=== PATIENT | male | born 2000 | race American Indian/Alaskan Native ===

== ENCOUNTER 2021-04-27 12:29 | Emergency (ER) | payer OTHER ==
--- NOTE | 2021-04-27 14:28 | CT ---
Head CT Technique: Multiple axial sections of the brain were obtained. Intravenous contrast was not utilized. Comparison: No prior intracranial imaging is available. Findings: Ventricles along with basal cisterns and sulci over the convexities are within normal limits for the patient's age. No abnormal parenchymal densities are seen. No evidence of intracranial hemorrhage. No midline shift or mass-effect is seen. Bone window settings were reviewed which show no acute paranasal sinus finding. No acute mastoid sinus finding is seen. No acute calvarial abnormality is seen. Impression: 1. Nothing acute is appreciated on noncontrast head CT study. Diagnostic code #1
--- NOTE | 2021-04-27 14:50 | EDM.PDOC ---
ED HPI GENERAL MEDICAL PROBLEM - General Chief Complaint: Neurological Problem Stated Complaint: CHEST PAIN/SOB/NOSEBLEEDS ALL ONGOING Time Seen by Provider: 04/27/21 12:47 Source of Information: Reports: Patient History Limitations: Reports: No Limitations - History of Present Illness INITIAL COMMENTS - FREE TEXT/NARRATIVE: The patient presents with nosebleeds. He says for the past month he has been having nosebleeds. He says they last for about 15 minutes and he has had a a few this past week. He also fell yesterday when getting up in his dorm room. He say he has a headache. He also has some congestion and sore throat. He does not have a fever or chills. He has no cough. He has no chest pain or shortness of breath. He has no abdominal pain, nausea or vomiting. He was looking on his phone and he thinks he has leukemia. He did have some episodes of easily bruising a few weeks ago but that is better. Onset: Gradual Duration: Day(s): Location: Reports: Head Quality: Reports: Ache Severity: Moderate Improves with: Reports: None Worsens with: Reports: None Associated Symptoms: Reports: Headaches. Denies: Chest Pain, Cough, Fever/Chills, Nausea/Vomiting, Shortness of Breath Right Posterior Head Pain Score (Numeric/FACES): 5 Chest Pain Score (Numeric/FACES): 3 - Related Data Allergies Allergy/AdvReac Type Severity Reaction Status Date / Time No Known Allergies Allergy Verified 04/27/21 13:05 Home Meds: Home Meds . [No Known Home Meds] 04/27/21 [History] ED ROS GENERAL - Review of Systems Review Of Systems: See Below Constitutional: Reports: No Symptoms HEENT: Reports: Nosebleed Respiratory: Reports: No Symptoms Cardiovascular: Reports: Syncope. Denies: Chest Pain Endocrine: Reports: No Symptoms GI/Abdominal: Reports: No Symptoms : Reports: No Symptoms Musculoskeletal: Reports: No Symptoms Skin: Reports: No Symptoms ED EXAM, NEURO - Physical Exam Exam: See Below Exam Limited By: No Limitations General Appearance: Alert, No Apparent Distress Ears: Normal External Exam Nose: Other (Dried blood to the left nare) Throat/Mouth: Normal Inspection Head Exam: Atraumatic, Normocephalic Neck: Normal Inspection, Supple, Non-Tender Respiratory/Chest: No Respiratory Distress, Lungs Clear, Normal Breath Sounds Cardiovascular: Regular Rate, Rhythm, No Edema, No Murmur GI/Abdominal: Soft, Non-Tender, No Organomegaly, No Mass Neurological: Alert, No Motor/Sensory Deficits, Oriented x 3 #1 Interpretation EKG Date: 04/27/21 Time: 13:20 Rhythm: Other (sinus bradycardia) Rate (Beats/Min): 41 [place]: Normal P-Wave: Present QRS: Normal ST-T: Elevated (Normal early repol) QT: Normal Course - Vital Signs Last Recorded V/S: Last Vital Signs Temp 97.8 F 04/27/21 12:55 Pulse 45 L 04/27/21 12:55 Resp 20 04/27/21 12:55 BP 153/85 H 04/27/21 12:55 Pulse Ox 98 04/27/21 12:55 - Orders/Labs/Meds Orders: Active Orders 24 hr Category Date Time Status Cardiac Monitoring [RC] . DIRECTED Care 04/27/21 13:13 Active Labs: Laboratory Tests 04/27/21 04/27/21 04/27/21 Range/Units 13:19 13:28 13:28 WBC 6.02 (4.23-9.07) K/mm3 RBC 5.50 (4.63-6.08) M/mm3 Hgb 16.0 (13.7-17.5) gm/dl Hct 47.5 (40.1-51.0) % MCV 86.4 (79.0-92.2) fl MCH 29.1 (25.7-32.2) pg MCHC 33.7 (32.2-35.5) g/dl RDW Std Deviation 43.6 (35.1-43.9) fL Plt Count 273 (163-337) K/mm3 MPV 10.0 (9.4-12.3) fl Neut % (Auto) 58.3 (34.0-67.9) % Lymph % (Auto) 31.1 (21.8-53.1) % [place] % (Auto) 8.6 (5.3-12.2) % Eos % (Auto) 1.5 (0.8-7.0) Baso % (Auto) 0.3 (0.1-1.2) % Neut # (Auto) 3.51 (1.78-5.38) K/mm3 Lymph # (Auto) 1.87 (1.32-3.57) K/mm3 [place] # (Auto) 0.52 (0.30-0.82) K/mm3 Eos # (Auto) 0.09 (0.04-0.54) K/mm3 Baso # (Auto) 0.02 (0.01-0.08) K/mm3 PT 10.6 (9.7-12.0) SECONDS INR 0.95 APTT 27.3 (21.7-31.4) SECONDS Sodium (136-145) mEq/L Potassium (3.5-5.1) mEq/L Chloride (98-107) mEq/L Carbon Dioxide (21-32) mEq/L Anion Gap (5-15) BUN (7-18) mg/dL Creatinine (0.7-1.3) mg/dL Est Cr Clr Drug Dosing mL/min Estimated GFR (MDRD) (>60) mL/min BUN/Creatinine Ratio (14-18) Glucose (70-99) mg/dL Calcium (8.5-10.1) mg/dL Total Bilirubin (0.2-1.0) mg/dL AST (15-37) U/L ALT (16-63) U/L Alkaline Phosphatase (46-116) U/L Troponin I (0.00-0.056) ng/mL Total Protein (6.4-8.2) g/dl Albumin (3.4-5.0) g/dl Globulin gm/dL Albumin/Globulin Ratio (1-2) SARS-CoV-2 RNA (FABIANO) Negative (NEGATIVE) 04/27/21 Range/Units 13:28 WBC (4.23-9.07) K/mm3 RBC (4.63-6.08) M/mm3 Hgb (13.7-17.5) gm/dl Hct (40.1-51.0) % MCV (79.0-92.2) fl MCH (25.7-32.2) pg MCHC (32.2-35.5) g/dl RDW Std Deviation (35.1-43.9) fL Plt Count (163-337) K/mm3 MPV (9.4-12.3) fl Neut % (Auto) (34.0-67.9) % Lymph % (Auto) (21.8-53.1) % [place] % (Auto) (5.3-12.2) % Eos % (Auto) (0.8-7.0) Baso % (Auto) (0.1-1.2) % Neut # (Auto) (1.78-5.38) K/mm3 Lymph # (Auto) (1.32-3.57) K/mm3 [place] # (Auto) (0.30-0.82) K/mm3 Eos # (Auto) (0.04-0.54) K/mm3 Baso # (Auto) (0.01-0.08) K/mm3 PT (9.7-12.0) SECONDS INR APTT (21.7-31.4) SECONDS Sodium 141 (136-145) mEq/L Potassium 4.0 (3.5-5.1) mEq/L Chloride 107 (98-107) mEq/L Carbon Dioxide 22 (21-32) mEq/L Anion Gap 16.0 H (5-15) BUN 13 (7-18) mg/dL Creatinine 1.0 (0.7-1.3) mg/dL Est Cr Clr Drug Dosing 130.41 mL/min Estimated GFR (MDRD) > 60 (>60) mL/min BUN/Creatinine Ratio 13.0 L (14-18) Glucose 108 H (70-99) mg/dL Calcium 8.6 (8.5-10.1) mg/dL Total Bilirubin 0.4 (0.2-1.0) mg/dL AST 21 (15-37) U/L ALT 33 (16-63) U/L Alkaline Phosphatase 77 (46-116) U/L Troponin I < 0.017 (0.00-0.056) ng/mL Total Protein 7.2 (6.4-8.2) g/dl Albumin 3.6 (3.4-5.0) g/dl Globulin 3.6 gm/dL Albumin/Globulin Ratio 1.0 (1-2) SARS-CoV-2 RNA (FABIANO) (NEGATIVE) - Re-Assessments/Exams Free Text/Narrative Re-Assessment/Exam: 04/27/21 14:51 I ordered an EKG, CT of his head and labs. His EKG shows a sinus bradycardia with no acute changes. His CT looks good. His CBC and CMP look good. He is COVID negative. 04/27/21 14:52 His troponin is negative. 04/27/21 15:03 I looked in both nostrils and there was some minor bleeding at the anterior right septum. I used some silver nitrate to cauterize it. I feel he has a viral URI. I will have him put air or antibiotic ointment in each nostril. Departure - Departure Time of Disposition: 15:05 Disposition: Home, Self-Care 01 Condition: Good Clinical Impression: Epistaxis, Viral URI Syncope Qualifiers: Syncope type: unspecified Qualified Code(s): R55 - Syncope and collapse - Discharge Information *PRESCRIPTION DRUG MONITORING PROGRAM REVIEWED*: Not Applicable *COPY OF PRESCRIPTION DRUG MONITORING REPORT IN PATIENT ERIC: Not Applicable Referrals: PCP,None [Primary Care Provider] - Roger Fuller MD [Physician] - 1 Week Forms: ED Department Discharge Additional Instructions: Drink plenty of fluids. Take tylenol or motrin for fever or pain. Put antibiotic or [place] in each nostril to keep things moist. Follow up with Dr Fuller within a week. Please return if you are worse. Sepsis Event Note (ED) - Focused Exam Vital Signs: Vital Signs Temp Pulse Resp BP Pulse Ox 04/27/21 12:55 97.8 F 45 L 20 153/85 H 98 - My Orders Last 24 Hours: My Active Orders 04/27/21 13:13 Cardiac Monitoring [RC] . DIRECTED - Assessment/Plan Last 24 Hours: My Active Orders 04/27/21 13:13 Cardiac Monitoring [RC] . DIRECTED ED EPISTAXIS PROCEDURES - Epistaxis Procedure Indication: Epistaxis Recent anticoagulants/antiplatlets: No Uncontrolled HTN: No Recent septal/nasal surgery: No Site of bleeding: Right Nare Ice pack to area: No Chemical cautery: Silver Nitrate Topical
== END 2021-04-27 15:35 | disposition home or self-care (01) ==
LOC: JD.ED 12:29
DX: R04.0 Epistaxis (principal); J06.9 Acute upper respiratory infection, unspecified; R55 Syncope and collapse; Z20.822 Contact with and (suspected) exposure to COVID-19
CPT/HCPCS: 30903; 36415; 70450; 70450-26; 80053; 84484; 85025; 85610; 85730; 93005; 99284-25; U0002

== ENCOUNTER 2021-05-04 22:18 | Emergency (ER) | payer SELFPAY ==
--- NOTE | 2021-05-05 00:16 | EDM.PDOC ---
ED HPI GENERAL MEDICAL PROBLEM - General Chief Complaint: General Stated Complaint: NOSE BLEEDS/DIZZINESS/MIGRAINE Time Seen by Provider: 05/04/21 23:46 Source of Information: Reports: Patient, Old Records (ED visit 04/27/2021) History Limitations: Reports: No Limitations - History of Present Illness INITIAL COMMENTS - FREE TEXT/NARRATIVE: Mr. Allison is a very pleasant 20-year-old gentleman who, medical records indicate, was seen in this ED 1 week ago, on 04/27/2021, with a complaint at that time of recurrent nosebleeds for 1 month. He stated that he had had several the prior week, each lasting about 15 minutes. He also reported that he had fallen when getting up in his dorm room, and that he had a headache. He reporting having some congestion and a sore throat. No fever, chills, cough, chest pain, dyspnea, abdominal pain, nausea, or vomiting. He was found to be hemodynamically stable, afebrile, saturating 98% on room air. His physical exam was notable for some dried blood in his left nare, otherwise, was unremarkable. Work-up included a CBC, CMP, troponin, coags, a swab for the SARS-CoV-2 virus and ECG, and CT of the head without contrast. His entire work-up was unremarkable. Before he was discharged, the patient developed a small amount of epistaxis on the right. A visible vessel was cauterized with silver nitrate. He was discharged with the advice of applying an antibiotic ointment to each side of his nostril, and to follow-up with Dr. Fuller in the clinic. The patient now returns to the ED stating that he has been experiencing 2 weeks of dyspnea, chest pain, insomnia, lightheadedness, headache, and blurry vision, in addition to continued recurrent epistaxis, up to 6 times per day. He acknowledges that he did not apply any ointment to his nostrils, and he did not make an appointment to follow-up with Dr. Fuller. He states that he took 24 mg (8 tablets x 3 mg each) of melatonin yesterday, because he thought that a l arger dose would help him fall asleep. He states that he did in fact sleep. Here in the ED tonight, the patient is found to be hemodynamically stable, afebrile, saturating 99% on room air. He appears to be comfortable, in no acute distress. Other than epistaxis, prior to 2 weeks ago, the patient denies having a recent fever, chills, sore throat, ear pain, nasal or sinus congestion, cough, dyspnea, chest pain, palpitations, nausea, vomiting, constipation, diarrhea, abdominal pain, urinary symptoms, recent weight gain or weight loss, recent bloody bowel movements or black bowel movements, recent joint aches, headaches, or rashes. The patient does not have a PCP. He has received 1 Pfizer Muecs vaccination. Chest Pain Score (Numeric/FACES): 8 Headache Pain Score (Numeric/FACES): 8 - Related Data Allergies Allergy/AdvReac Type Severity Reaction Status Date / Time No Known Allergies Allergy Verified 04/27/21 13:05 Home Meds: Home Meds Melatonin 3 mg PO BEDTIME PRN 05/04/21 [History] Past Medical History Endocrine/Metabolic History: Reports: Obesity/BMI 30+ - Past Surgical History Musculoskeletal Surgical History: Reports: Other (See Below) (Right thumb tendon repair) Social & Family History - Tobacco Use Tobacco Use Status *Q: Never Tobacco User Tobacco Use Within Last Twelve Months: Vaping (Nicotine) - Caffeine Use Caffeine Use: Reports: Soda - Alcohol Use Alcohol Use History: Yes Alcohol Use Frequency: Socially - Recreational Drug Use Recreational Drug Use: No - Living Situation & Occupation Living situation: Reports: Single, Other (Dorm) Occupation: Student ([employer]) ED ROS GENERAL - Review of Systems Review Of Systems: Comprehensive ROS is negative, except as noted in HPI. ED EXAM, GENERAL - Physical Exam Exam: See Below Exam Limited By: No Limitations General Appearance: Alert, WD/WN, No Apparent Distress Eye Exam: Bilateral Eye: EOMI, Normal Inspection Ears: Normal External Exam, Normal Canal, Hearing Grossly Normal, Normal TMs Nose: Normal Mucosa, No Blood, Other (Small scab to lower anterior right nasal septum. No bleeding or dried blood seen.) Throat/Mouth: Normal Inspection, Normal Lips, Normal Teeth, Normal Gums, Normal Oropharynx, Normal Voice, No Airway Compromise Head: Atraumatic, Normocephalic Neck: Normal Inspection, Supple, Non-Tender, Full Range of Motion. No: Lymphadenopathy (L), Lymphadenopathy (R) Respiratory/Chest: No Respiratory Distress, Lungs Clear, Normal Breath Sounds, No Accessory Muscle Use. No: Decreased Breath Sounds, Crackles, Rhonchi, Wheezing, Stridor, Prolonged Expiration Cardiovascular: Normal Peripheral Pulses, Regular Rate, Rhythm, No Edema, No Gallop, No JVD, No Murmur, No Rub Peripheral Pulses: 3+: Radial (L), Radial (R) GI/Abdominal: Normal Bowel Sounds, Soft, Non-Tender, No Organomegaly, No Distention, No Abnormal Bruit, No Mass Back Exam: Normal Inspection, Full Range of Motion, NT Extremities: Normal Inspection, Normal Range of Motion, No Pedal Edema, Normal Capillary Refill Neurological: Alert, Oriented, Normal Cognition, No Motor/Sensory Deficits Psychiatric: Normal Affect Skin Exam: Warm, Dry, Intact, Normal Color, No Rash Course - Vital Signs Last Recorded V/S: Last Vital Signs Temp 37.5 C 05/04/21 22:44 Pulse 63 05/04/21 22:44 Resp 20 05/04/21 22:44 BP 140/84 05/04/21 22:44 Pulse Ox 99 05/04/21 22:44 Orthostatic Blood Pressure [ 128/82 Standing] Orthostatic Blood Pressure [ 130/68 Supine] - Re-Assessments/Exams Free Text/Narrative Re-Assessment/Exam: 05/05/21 00:11 According to the patient, he has been experiencing epistaxis for more than 1 month, and dyspnea, chest pain, insomnia, lightheadedness, a headache, and blurry vision for 2 weeks. An exhaustive work-up was performed in this ED 1 week ago, on 04/27/2021, and was entirely unremarkable. Since his symptoms began a week before the exhaustive work-up, and his symptoms are unchanged, I see no indication to repeat them again tonight. The only test that I can conceive of that was not done a week ago is checking orthostatics. 05/05/21 01:35 The patient is not orthostatic. 05/05/21 01:55 I will discharge the patient home with recommendation that he call the clinic in the morning to establish a PCP. Departure - Departure Time of Disposition: 01:55 Disposition: Home, Self-Care 01 Condition: Good Clinical Impression: Recurrent epistaxis, Dyspnea, Chest pain, Insomnia, Lightheadedness, Headache, Blurry vision - Discharge Information *PRESCRIPTION DRUG MONITORING PROGRAM REVIEWED*: Not Applicable *COPY OF PRESCRIPTION DRUG MONITORING REPORT IN PATIENT ERIC: Not Applicable Instructions: Nosebleed, Adult, [id number] Referrals: PCP,None [Primary Care Provider] - Roger Fuller MD [Physician] - Forms: ED Department Discharge Additional Instructions: You were seen in the emergency room for more than 1 month of recurrent right- sided nosebleed, along with 2 weeks of shortness of breath, chest pain, insomnia, lightheadedness, headache, and blurry vision. Work-up in the ER included positional blood pressure checks, which returned normal. Since your symptoms began 1 week prior to an extensive work-up in the ER 1 week ago, repeating those tests were not indicated. As discussed, there is no benefit in taking large doses of melatonin. Stay adequately hydrated and eat a balanced diet. If you redevelop a nosebleed, sit upright, tilt your head slightly forward, and pinch your nose tightly, for about 10 to 15 minutes. This stops at nearly all nosebleeds. We recommend that you follow-up with Dr. Roger Fuller, or one of the other providers in the clinic, to establish a PCP. If any other problems, please do not hesitate to return to the ER. Sepsis Event Note (ED) - Focused Exam Vital Signs: Vital Signs Temp Pulse Resp BP Pulse Ox 05/04/21 22:44 37.5 C 63 20 140/84 99
== END 2021-05-05 02:12 | disposition home or self-care (01) ==
LOC: JD.ED 22:18
DX: R04.0 Epistaxis (principal); R06.02 Shortness of breath; R07.9 Chest pain, unspecified; G47.00 Insomnia, unspecified; H53.8 Other visual disturbances; E66.9 Obesity, unspecified; Z68.33 Body mass index [BMI] 33.0-33.9, adult
CPT/HCPCS: 99283